=== PATIENT | male | born 1960 | race African-American/Black ===

== ENCOUNTER 2019-07-26 04:25 | Emergency (ER) | payer MEDICAID, OTHER ==
[~2019-07-26] VITALS: Ht 182.9 cm; Wt 83.9 kg
[2019-07-26 04:50] VITALS: BP 147/97
[2019-07-26] MEDS ORDERED: hydrOXYzine 25 MG TAB or CAP PO ONE (07:15)
[2019-07-26] MEDS ORDERED: ACETAMINOPHEN/CODEINE#3 (300/30mg) TAB PO ONE (08:45)
== END 2019-07-26 09:46 | disposition home or self-care (01) ==
LOC: EDBD 04:25 → ER 04:25
DX: S22.31XA Fracture of one rib, right side, initial encounter for closed fracture (principal); S62.514A Nondisplaced fracture of proximal phalanx of right thumb, initial encounter for closed fracture; I10 Essential (primary) hypertension; E78.5 Hyperlipidemia, unspecified; W19.XXXA Unspecified fall, initial encounter; Y93.89 Activity, other specified; Y92.89 Other specified places as the place of occurrence of the external cause; Y99.8 Other external cause status
CPT/HCPCS: 29125; 71101; 73130